=== PATIENT | female | born 1970 ===

== ENCOUNTER 2022-10-20 06:44 | Day surgery (SDC) | payer OTHER | END 2022-10-20 14:50 | disposition home or self-care (01) | LOC: AMB-ENDOS 06:44 | PROVIDERS: ATTEND Colon & Rectal Surgery | DX: D12.8 Benign neoplasm of rectum (principal); Z20.822 Contact with and (suspected) exposure to COVID-19 ==

== ENCOUNTER 2022-12-31 16:53 | Inpatient (IN) | payer OTHER ==
[~2022-12-31] VITALS: Ht 167.6 cm; Wt 79.4 kg
[2023-01-05] MEDS ORDERED: ATORVASTATIN CA10 MG PO (09:32)
[2023-01-05] MEDS ORDERED: ZESTORETIC 20-1 EAC1 PO (09:32)
[2023-01-05] MEDS ORDERED: ACID CONTROLLER20 MG PO (09:33)
== END 2023-01-16 14:12 | disposition home or self-care (01) | DRG 331 ==
LOC: O/R 01-10 05:30 → SURG 01-10 07:00 → SURH 01-10 14:54
PROVIDERS: ADMIT Colon & Rectal Surgery; ATTEND Colon & Rectal Surgery
PROC: 0DBP4ZZ Excision of Rectum, Percutaneous Endoscopic Approach (ICD-10-PCS; 2023-01-10)
PROC: 07BC4ZX Excision of Pelvis Lymphatic, Percutaneous Endoscopic Approach, Diagnostic (ICD-10-PCS; 2023-01-10)
PROC: 0DTN4ZZ Resection of Sigmoid Colon, Percutaneous Endoscopic Approach (ICD-10-PCS; principal; 2023-01-10 07:00)
DX: K62.1 Rectal polyp (principal); R59.0 Localized enlarged lymph nodes

== ENCOUNTER 2023-01-24 11:53 | Emergency (ER) | payer OTHER ==
[~2023-01-24] VITALS: Ht 167.6 cm; Wt 75.7 kg
[~2023-01-24 11:53] MED LIST: ACID CONTROLLER20 MG PO; ATORVASTATIN CA10 MG PO; ZESTORETIC 20-1 EAC1 PO
== END 2023-01-24 17:56 | disposition home or self-care (01) ==
LOC: ER 11:53
DX: K59.00 Constipation, unspecified (principal); E78.00 Pure hypercholesterolemia, unspecified; I10 Essential (primary) hypertension; K80.50 Calculus of bile duct without cholangitis or cholecystitis without obstruction